=== PATIENT | male | born 1965 | race Caucasian/White ===

== ENCOUNTER 2020-03-03 14:20 | Outpatient (REF) | payer MEDICAID, SELFPAY | END 2020-03-03 14:21 | disposition home or self-care (01) | LOC: HO.LAB 14:20 | PROVIDERS: Visit Provider Internal Medicine | DX: Z20.828 Contact with and (suspected) exposure to other viral communicable diseases (principal) | CPT/HCPCS: 87635 ==

== ENCOUNTER 2020-04-08 14:44 | Outpatient (REF) | payer MEDICAID, SELFPAY | END 2020-04-08 14:45 | disposition home or self-care (01) | LOC: HO.LAB 14:44 | PROVIDERS: Visit Provider Internal Medicine | DX: Z20.828 Contact with and (suspected) exposure to other viral communicable diseases (principal) | CPT/HCPCS: C9803; U0003 ==

== ENCOUNTER 2020-11-10 22:31 | Emergency (ER) | payer MEDICAID, SELFPAY ==
[2020-11-10 22:36] VITALS: BP 114/90; BP 148/74; PULSE 95; PULSE 96; RESP 18; TEMP 36.8; O2SAT 92; O2SAT 97; BMI 30.9
--- NOTE | 2020-11-11 00:42 | ED.GENADULT ---
HPI - General Adult General Chief complaint: General Medical Stated complaint: pain Time Seen by Provider: 11/11/20 00:42 Source: patient Mode of arrival: ambulatory Limitations: no limitations History of Present Illness HPI narrative: patient drinking alcohol and staying in outside for last 2 days not drinking eating much complaining of pain all over the body Related Data Allergies Allergy/AdvReac Type Severity Reaction Status Date / Time No Known Allergies Allergy Verified 11/10/20 22:36 Review of Systems Review of Systems: Yes all other systems are reviewed and are negative [facility] Past Medical History Medical History ETOH abuse Substance abuse Social History Social History Advance Directives: No Advance Directives Information Provided: No Physical Exam Vital Signs: Vital Signs: Last Vital Signs Temp 98.2 F 11/10/20 22:36 Pulse 95 11/10/20 22:36 Resp 18 11/10/20 22:36 BP 148/74 H 11/10/20 22:36 Pulse Ox 97 11/10/20 22:36 Body Mass Index 30.9 Appearance: Alert. Oriented X3. No acute distress. EtOH + Eyes: PERRLA, No Nystagmus ENT: Pharynx normal. Oral Mucosa moist Neck: Normal inspection. Neck supple. CVS: Normal heart rate and rhythm. Pulses normal. Respiratory: No respiratory distress. Equal air entry bilateral, no wheezing/rales/rhonchi Abdomen: Soft and nontender. Bowel sounds are present, no mass palpable, no CVA tenderness Skin: Skin warm and dry. Normal skin color. Normal skin turgor. Extremities: No lower extremity edema. No calf tenderness Neuro: Oriented X 3. No motor deficit. No sensory deficit.No cerebellar signs , cranial nerves II-XII intact Medical Decision Making MDM Narrative Medical decision making narrative: patient's symptom likely from alcohol use and heat exhaustion labs stable discharge patient home patient had p.o. fluids food and IV fluids in the ER Lab Data Lab results reviewed: Yes I reviewed the patient's lab results. Result diagrams: 11/11/20 01:13 11/11/20 01:13 Labs: Lab Results 11/11/20 11/11/20 11/11/20 Range/Units 01:13 01:13 01:13 WBC 7.0 (4.8-10.8) X10*3/uL RBC 4.95 (4.60-5.80) X10*6/uL Hgb 15.9 (14.0-18.0) g/dl Hct 46.3 (42-52) % MCV 93.5 (80-98) fL MCH 32.1 (27.0-33.0) pg MCHC 34.3 (31.0-36.0) g/dl RDW 14.9 (11.0-16.0) % Plt Count 266 (160-400) X10*3/uL MPV 9.2 L (9.4-12.4) fL Immature Gran % (Auto) 0.3 (0.0-0.4) % Neut % (Auto) 47.1 (45-73) % Lymph % (Auto) 42.5 H (20-40) % [place] % (Auto) 6.8 (2-11) % Eos % (Auto) 2.7 (0-4) % Baso % (Auto) 0.6 (0-2) % Lymph # (Auto) 3.0 (1.2-4.9) X10*3/uL [place] # (Auto) 0.5 (0.1-1.2) X10*3/uL Eos # (Auto) 0.2 (0.0-0.4) X10*3/uL Baso # (Auto) 0.0 (0.0-0.2) X10*3/uL Abs Immat Gran (auto) 0.02 (0.00-0.03) X10*3/uL Absolute Neuts (auto) 3.3 (2.0-8.3) X10*3/uL Absolute Nucleated RBC 0.000 (0.0-0.012) X10*3/uL Nucleated RBC % (auto) 0.0 (0.0-0.2) /100WBC Sodium 143 (135-145) mmol/L Potassium 3.6 (3.3-5.1) mmol/L Chloride 105 (96-108) mmol/L Carbon Dioxide 26 (22-29) mmol/L Anion Gap 16 (12-20) BUN 6 L (9-16) mg/dL Creatinine 0.93 (0.5-1.4) mg/dL Estim Creat Clear Calc 86.5 Estimated GFR > 60 Random Glucose 113 (60-115) mg/dL Calcium 9.2 (8.4-10.2) mg/dL Magnesium 2.2 (1.6-2.6) mg/dL Total Bilirubin 0.8 (0.0-1.0) mg/dL AST 37 (5-37) U/L ALT 25 (0-40) U/L Alkaline Phosphatase 54 (39-117) U/L Total Creatine Kinase 518 H (38-174) U/L Total Protein 6.9 (6.5-8.0) g/dL Albumin 4.3 (3.5-5.0) g/dL Urine Color Urine Appearance Urine pH (5.0-8.0) Ur Specific [place] (1.005-1.025) Urine Protein (NEG-TRACE) MG/DL Urine Glucose (UA) (NEG) MG/DL Urine Ketones (NEG) MG/DL Urine Blood (NEG) Urine Nitrite (NEG) Ur Leukocyte Esterase (NEG) Urine RBC (0) /HPF Urine WBC (0-4) /HPF Ur Squamous Epith Cells /LPF Uric Acid Crystals /LPF Urine Bacteria /LPF Urine Mucus /LPF Ethyl Alcohol 143 mg/dL // Range/Units 01:14 WBC (4.8-10.8) X10*3/uL RBC (4.60-5.80) X10*6/uL Hgb (14.0-18.0) g/dl Hct (42-52) % MCV (80-98) fL MCH (27.0-33.0) pg MCHC (31.0-36.0) g/dl RDW (11.0-16.0) % Plt Count (160-400) X10*3/uL MPV (9.4-12.4) fL Immature Gran % (Auto) (0.0-0.4) % Neut % (Auto) (45-73) % Lymph % (Auto) (20-40) % [place] % (Auto) (2-11) % Eos % (Auto) (0-4) % Baso % (Auto) (0-2) % Lymph # (Auto) (1.2-4.9) X10*3/uL [place] # (Auto) (0.1-1.2) X10*3/uL Eos # (Auto) (0.0-0.4) X10*3/uL Baso # (Auto) (0.0-0.2) X10*3/uL Abs Immat Gran (auto) (0.00-0.03) X10*3/uL Absolute Neuts (auto) (2.0-8.3) X10*3/uL Absolute Nucleated RBC (0.0-0.012) X10*3/uL Nucleated RBC % (auto) (0.0-0.2) /100WBC Sodium (135-145) mmol/L Potassium (3.3-5.1) mmol/L Chloride (96-108) mmol/L Carbon Dioxide (22-29) mmol/L Anion Gap (12-20) BUN (9-16) mg/dL Creatinine (0.5-1.4) mg/dL Estim Creat Clear Calc Estimated GFR Random Glucose (60-115) mg/dL Calcium (8.4-10.2) mg/dL Magnesium (1.6-2.6) mg/dL Total Bilirubin (0.0-1.0) mg/dL AST (5-37) U/L ALT (0-40) U/L Alkaline Phosphatase (39-117) U/L Total Creatine Kinase (38-174) U/L Total Protein (6.5-8.0) g/dL Albumin (3.5-5.0) g/dL Urine Color YELLOW Urine Appearance CLEAR Urine pH 6.0 (5.0-8.0) Ur Specific Norman 1.025 (1.005-1.025) Urine Protein NEG (NEG-TRACE) MG/DL Urine Glucose (UA) NEG (NEG) MG/DL Urine Ketones 5 (NEG) MG/DL Urine Blood 1+ H (NEG) Urine Nitrite NEG (NEG) Ur Leukocyte Esterase NEG (NEG) Urine RBC 0-2 (0) /HPF Urine WBC 0-2 (0-4) /HPF Ur Squamous Epith Cells TRACE /LPF Uric Acid Crystals 1+ /LPF Urine Bacteria NONE /LPF Urine Mucus 3+ /LPF Ethyl Alcohol mg/dL Discharge Plan Discharge Clinical Impression: Alcohol abuse Heat exhaustion Qualifiers: Encounter type: initial encounter Qualified Code(s): T67.5XXA - Heat exhaustion, unspecified, initial encounter Patient Disposition: Home, Self-Care Instructions: Heat Exhaustion (ED), Abuse of Alcohol (ED) Additional Instructions: drink plenty of fluids , stay in shaded area stop drinking alcohol
[2020-11-11] MEDS: 0.9 % Sodium Chloride 1,000 ML 999 ML IVCONT (01:18)
[2020-11-11 01:23] LABS: MANUAL DIFF FLAG NO
[2020-11-11 01:25] LABS: Basophils Percent Auto 0.6 % (0-2); Eosinophils Absolute Auto 0.2 X10*3/uL (0.0-0.4); Eosinophils Percent Auto 2.7 % (0-4); Hematocrit 46.3 % (42-52); Hemoglobin 15.9 g/dl (14.0-18.0); Imm Gran Abs Auto 0.02 X10*3/uL (0.00-0.03); Imm Gran Pct Auto 0.3 % (0.0-0.4); Lymphocytes Percent Auto 42.5 % (20-40); Mean Corpuscular HGB Conc 34.3 g/dl (31.0-36.0); Mean Corpuscular Hemoglobin 32.1 pg (27.0-33.0); Mean Corpuscular Volume 93.5 fL (80-98); Mean Platelet Volume 9.2 fL (9.4-12.4); Monocytes Absolute Auto 0.5 X10*3/uL (0.1-1.2); Monocytes Percent Auto 6.8 % (2-11); Neutrophils Absolute Auto 3.3 X10*3/uL (2.0-8.3); Neutrophils Percent Auto 47.1 % (45-73); Platelet Count 266 X10*3/uL (160-400); Red Blood Count 4.95 X10*6/uL (4.60-5.80); Red Cell Distribution Width 14.9 % (11.0-16.0)
[2020-11-11 01:39] LABS: Glucose Urine UA NEG (NEG); Leukocyte Esterase Urine NEG (NEG); Nitrite Urine NEG (NEG); Specific Gravity - Urine 1.025 (1.005-1.025); Urine Blood 1+ (NEG); Urine Ketones 5 MG/DL (NEG); Urine Protein NEG (NEG-TRACE)
[2020-11-11 01:41] LABS: Appearance Urine CLEAR; Color Urine YELLOW
[2020-11-11 01:46] LABS: Ethanol 143 mg/dL
[2020-11-11 01:50] LABS: Alanine Aminotransferase 25 U/L (0-40); Albumin Level 4.3 g/dL (3.5-5.0); Alkaline Phosphatase 54 U/L (39-117); Anion Gap 16 (12-20); Aspartate Amino Transferase 37 U/L (5-37); Bilirubin Total 0.8 mg/dL (0.0-1.0); Blood Urea Nitrogen 6 mg/dL (9-16); Calcium 9.2 mg/dL (8.4-10.2); Carbon Dioxide 26 mmol/L (22-29); Chloride 105 mmol/L (96-108); Creatinine Clr Calc Pharmacy 86.5; Estimated Glomerular Filt Rate > 60; Glucose Random 113 mg/dL (60-115); Magnesium 2.2 mg/dL (1.6-2.6); Potassium 3.6 mmol/L (3.3-5.1); Sodium 143 mmol/L (135-145); Total Protein 6.9 g/dL (6.5-8.0)
[2020-11-11 02:01] LABS: Mucus Urine 3+ /LPF; RBC Urine 0-2 /HPF (0); Squamous Epithelial Cell Urine TRACE /LPF; Uric Acid Crystals Urine 1+ /LPF; WBC Urine 0-2 /HPF (0-4)
[2020-11-11 02:24] VITALS: BP 130/72; PULSE 81; RESP 16; TEMP 36.6; O2SAT 99
== END 2020-11-11 02:26 | disposition home or self-care (01) ==
PROVIDERS: Emergency Provider Internal Medicine; PCP Internal Medicine
DX: T67.5XXA Heat exhaustion, unspecified, initial encounter (principal); F10.10 Alcohol abuse, uncomplicated; Y90.9 Presence of alcohol in blood, level not specified; X58.XXXA Exposure to other specified factors, initial encounter; Y93.9 Activity, unspecified; Y92.9 Unspecified place or not applicable; Y99.9 Unspecified external cause status
CPT/HCPCS: 36415; 80053; 81001; 82077; 82550; 83735; 85025; 96360; 99283; 99284

== ENCOUNTER 2022-03-10 16:03 | Emergency (ER) | payer MEDICAID, SELFPAY ==
--- NOTE | ~2022-03-10 | XR_ITS ---
EXAMINATION: XR CHEST CLINICAL INFORMATION: Chest pain COMPARISON: None TECHNIQUE: 2 views of the chest were obtained. FINDINGS: No significant abnormality is noted involving the heart, lungs, mediastinum, or soft tissues. Mild degenerative changes. XR/XR chest 2V IMPRESSION: Unremarkable examination.
[2022-03-10 16:16] VITALS: BP 140/82; PULSE 65; O2SAT 97
--- NOTE | 2022-03-10 16:19 | ECG_ITS ---
Test Reason : CHEST PAIN Blood Pressure : / mmHG Vent. Rate : 062 BPM Atrial Rate : 062 BPM P-R Int : 184 ms QRS Dur : 108 ms QT Int : 420 ms P-R-T Axes : 030 042 058 degrees QTc Int : 426 ms Normal sinus rhythm Intra-ventricular conduction delay Nonspecific ST abnormality Inferior leads Abnormal ECG No previous ECGs available Referred By: Generic ED Physician Electronically Signed By:JERONIMO STUART MD
[2022-03-10 16:28] VITALS: BP 117/63; PULSE 65; RESP 17; TEMP 36.6; O2SAT 98; BMI 22.3
[2022-03-10 16:43] LABS: MANUAL DIFF FLAG NO
[2022-03-10 16:45] LABS: Basophils Percent Auto 0.6 % (0-2); Eosinophils Absolute Auto 0.1 X10*3/uL (0.0-0.4); Eosinophils Percent Auto 2.1 % (0-4); Hematocrit 37.7 % (42.0-52.0); Hemoglobin 12.9 g/dl (14.0-18.0); Imm Gran Abs Auto 0.01 X10*3/uL (0.00-0.03); Imm Gran Pct Auto 0.1 % (0.0-0.4); Lymphocytes Absolute Auto 3.9 X10*3/uL (1.2-4.9); Lymphocytes Percent Auto 58.3 % (20-40); Mean Corpuscular HGB Conc 34.2 g/dl (31.0-36.0); Mean Corpuscular Hemoglobin 30.9 pg (27.0-33.0); Mean Corpuscular Volume 90.4 fL (80.0-98.0); Mean Platelet Volume 8.9 fL (9.4-12.4); Monocytes Absolute Auto 0.7 X10*3/uL (0.1-1.2); Monocytes Percent Auto 10.1 % (2-11); Neutrophils Percent Auto 28.8 % (45-73); Platelet Count 239 X10*3/uL (160-400); Red Blood Count 4.17 X10*6/uL (4.60-5.80); Red Cell Distribution Width 14.3 % (11.0-16.0); White Blood Count 6.8 X10*3/uL (4.8-10.8)
[2022-03-10 17:03] LABS: Anion Gap 14 (12-20); Blood Urea Nitrogen 17 mg/dL (9-16); Calcium 9.7 mg/dL (8.4-10.2); Carbon Dioxide 27 mmol/L (22-29); Chloride 103 mmol/L (96-108); Creatinine Clr Calc Pharmacy 70.9; Estimated Glomerular Filt Rate > 60; Glucose Random 95 mg/dL (60-115); Sodium 139 mmol/L (135-145)
[2022-03-10 17:11] LABS: Troponin-I High Sensitivity 3.5 ng/L (<3.5-35.0)
--- OUTSIDE RECORDS SUMMARY | 2022-03-10 21:49 | XMS_ITS ---
:1965 Author Support Name Relationship Address Phone Quan Dickey Unavailable [address] [place] [address] Alexus Walker Unavailable Unavailable [phone] PROBLEMS Unknown Problems ALLERGIES No Information ENCOUNTERS Encounter Location Date Diagnosis [facility] [address] [place] [address] [place], [place] [id number] IMMUNIZATIONS No Known Immunizations SOCIAL HISTORY Never Assessed REASON FOR REFERRAL FUNCTIONAL STATUS PLAN OF CARE VITAL SIGNS MEDICATIONS Unknown Medications PROCEDURES No Known procedures RESULTS No Results REASON FOR VISIT
--- OUTSIDE RECORDS SUMMARY | 2022-03-10 21:49 | XMS_ITS | Continuity of Care Document ---
:1965 Author Organization [facility] Address [address] [place] [address]- Care Team Providers Name Role Phone Nupur HOOK, Kana Jacobs Primary Care Physician [phone] Encounter [facility] [place] Date(s): 08/09/21 - 08/12/[address] [id number] Discharge Disposition: A-D/C Home Attending Physician: Lisa Santillan MD Admitting Physician: Kwaku Fuentes MD Referring Physician: Not on Staff, Referring MD Allergies, Adverse Reactions, Alerts No Known Allergies Medications acetaminophen 325 mg oral tablet 650 mg, Tablet, By Mouth, 08/12/21 8:00:00 EDT Start Date: 08/12/21 Stop Date: 08/12/21 Status: Completedcrutches crutches, See Instructions, # 1 units, Refills 0, Tot. Refills 0, Maintenance, for ambulation, 01/31/14 14:51:29, Compound Start Date: 01/31/14 Status: Orderedibuprofen 600 mg oral tablet 1 tablet = 600 mg, By Mouth, Every 6 hours, # 30 tablet, 0 Refills, Maintenance, 10/17/14 9:30:19, Tablet Start Date: 10/17/14 Status: Orderedknee immobilizer knee immobilizer, See Instructions, # 1 units, Refills 0, Tot. Refills 0, Maintenance, for ambulatipn, 01/31/14 14:51:35, Compound Start Date: 01/31/14 Status: OrderedSuboxone 8 mg-2 mg sublingual film 1 film, Sublingual, Daily, dissolve under the tongue, # 7 film, 0 Refills, Maintenance, 08/13/21 8:00:00 EDT, Film, [facility], Partial fill upon patient request if the prescription is for a schedule II opioid drug. [id number], 1 film Sub... Start Date: 08/13/21 Status: Ordered Results Radiology Reports Exam Date Time Procedure Performing Provider Status 08/09/21 8:30 PM Chest 2 Views Frontal and Lat Tete Najera; Au th (Verified) Notes:(Chest 2 Views Frontal and Lat) Reason For Exam: CoughRESULT: Chest 2 Views Frontal and Lat Chest 2 Views Frontal and Lat Hx of Present Illness: Pt has very vague complaints. He sts I feel unwell c o body aches all over.Back pain which is not new. nausea without vomitting and constipation, last BM yesterday.; Reason: Cough; Clinical Question(s): Pneumonia; Special Instructions: This is a protocol film and radiologist should call any findings to the Charge Nurse or appropriate provider COMPARISON: None. FINDINGS: LINES AND TUBES: None. LUNGS AND PLEURA: Clear lungs. Normal pulmonary vascularity. No pleural effusion. No pneumothorax. HEART, MEDIASTINUM AND JEREMY: Heart is normal in size. Normal upper mediastinal and hilar contour. BONES AND SOFT TISSUES: No acute abnormality. IMPRESSION: No acute abnormality. WSN: [id number] Ordering Physician: Rere Rosales Dictated By: Tj Hodge MD Dictated Date/Time: 08/09/21 8:39 pm Reviewed By: Tj Hodge MD Signed By: Tj Hodge MD Signed Date/Time: 08/09/21 8:39 pm Transcribed By: RENAN Transcribed Date/Time: 08/09/21 8:39 pm Vital Signs Most recent to oldest 1 2 3 [Reference Range]: Height 163 cm 163 cm 163 cm (08/12/21 8:47 AM) (08/12/21 4:18 AM) (08/11/21 11: 25 PM) Oxygen Saturation [94-100 %] 100 % 100 % 100 % (08/12/21 8:47 AM) (08/12/21 4:18 AM) (08/11/21 11: 25 PM) Pulse Rate [55-90 bpm] 82 bpm 57 bpm 67 bpm (08/12/21 8:47 AM) (08/12/21 4:18 AM) (08/11/21 11: 25 PM) Blood Pressure [90-138/55-84 128/75 mm Hg 148/62 mm Hg 126 /79 mm Hg mm Hg] (08/12/21 8:47 AM) *H* (08/11/21 11:25 PM) (08/12/21 4:18 AM) Respiratory Rate [16-30 18 br/min 20 br/min 18 br/mi n br/min] (08/12/21 9:53 AM) (08/12/21 8:47 AM) (08/12/21 8:3 8 AM) Temperature [96.8-100.4 DegF] 97.8 DegF 98.6 DegF 98 .0 DegF (08/12/21 8:47 AM) (08/12/21 4:18 AM) (08/11/21 11: 25 PM) Mode of Delivery (Oxygen) Room air Room air Room a ir (08/12/21 8:47 AM) (08/12/21 4:18 AM) (08/11/21 11: 25 PM) Blood pressure sites Arm, left Arm, left Arm, left (08/12/21 8:47 AM) (08/12/21 4:18 AM) (08/11/21 11: 25 PM) Temperature Route Oral Oral Oral (08/12/21 8:47 AM) (08/12/21 4:18 AM) (08/11/21 11: 25 PM) Weight Obtained Via UTO (08/09/21 6:17 PM) Dry Weight Obtained Via UTO (08/09/21 6:17 PM) Social History Social History Type Response Smoking Status Current every day smoker entered on: 10/17/14 Sex
--- OUTSIDE RECORDS SUMMARY | 2022-03-10 21:49 | XMS_ITS | Continuity of Care Document ---
:1965 Author Organization [facility] Address [address] [place] [address]- Care Team Providers Name Role Phone Nupur HOOK, Kana Jacobs Primary Care Physician Encounter [facility] [place] Date(s): 11/21/20 - 11/22/[address] [address]- Discharge Disposition: A-D/C Home Attending Physician: Kayla HOOK, Bhupinder Jones Admitting Physician: Kayla HOOK, Bhupinder Jones Referring Physician: Not on Staff, Referring MD Allergies, Adverse Reactions, Alerts Substance Reaction Severity Status NKA Active Medications crutches crutches, See Instructions, # 1 units, Refills [...] 01/31/14 14:51:35, Compound Start Date: 01/31/14 Status: OrderedPercocet-5/325 325 mg-5 mg oral tablet 2 tablet, By Mouth, Every 6 hours, PRN Pain, # 12 tablet, 0 Refills, Maintenance, 10/17/14 9:31:27 Start Date: 10/17/14 Status: Ordered Vital Signs Most recent to oldest [Reference 1 2 3 Range]: Oxygen Saturation [94-100 %] 97 % 97 % 98 % (11/22/20 6:01 AM) (11/21/20 10:24 PM) (11/21/20 7:44 PM) Pulse Rate [55-90 bpm] 57 bpm 64 bpm 79 bpm (11/22/20 6:01 AM) (11/21/20 10:24 PM) (11/21/20 7:44 PM) Blood Pressure [90-138/55-84 mm 114/74 mm Hg 100/57 mm Hg 125/53 mm Hg Hg] (11/22/20 6:01 AM) (11/21/20 10:24 PM) (11/21/20 7:44 PM) Respiratory Rate [16-30 br/min] 16 br/min 16 br/min 16 br/min (11/22/20 6:01 AM) (11/21/20 10:24 PM) (11/21/20 7:44 PM) Temperature [96.8-100.4 DegF] 97.6 DegF 98.0 DegF (11/22/20 6:01 AM) (11/21/20 7:44 PM) Mode of Delivery (Oxygen) Room air Room air Room a ir (11/22/20 6:01 AM) (11/21/20 10:24 PM) (11/21/20 7:44 PM) Blood pressure sites Arm, right (11/22/20 6:01 AM) Temperature Route Oral Oral (11/22/20 6:01 AM) (11/21/20 7:44 PM) Social History Social History Type Response Smoking Status Current every day smoker entered on: 10/17/14 Sex
--- NOTE | 2022-03-10 22:01 | ED.CHESTPAIN ---
HPI - Chest Pain General Chief Complaint: Chest Pain Stated Complaint: chest pain Time Seen by Provider: 03/10/22 16:12 History of Present Illness HPI narrative: Patient is a 56-year-old male presents today with having chest pain. The chest pain is over the left side. It is sharp. It is localized. It is not associated with shortness of breath. There is no diaphoresis. Patient claims is a constant component and there is a 1-2 second component. It is worse with specific movement of the body. Patient denies any coughing congestion upper respiratory symptoms. Denies any diaphoresis. No recent stress test. Positive history of hypertension. No history of diabetes, high cholesterol, [place]. Positive history of smoking quit 10 years ago. No leg swelling no history of blood clots. Patient from home. No stress test done Related Data Allergies Allergy/AdvReac Type Severity Reaction Status Date / Time No Known Allergies Allergy Verified 11/10/20 22:36 Review of Systems Review of Systems: positive chest pain. No shortness of breath no diaphoresis Yes all other systems are reviewed and are negative PENDING SALE TO [facility] Past Medical History Attestation statement: The following information was validated with the patient. Medical History ETOH abuse Substance abuse Social History Social History Advance Directives: No Advance Directives Information Provided: No Physical Exam Vital Signs: Vital Signs: Last Vital Signs Temp 98.5 F 03/10/22 22:57 Pulse 78 03/10/22 22:57 Resp 17 03/10/22 22:57 BP 130/60 03/10/22 22:57 Pulse Ox 98 03/10/22 22:57 O2 Del Method 03/10/22 22:57 BMI result Body Mass Index 22.3 Appearance: Alert. Oriented X3. No acute distress. Eyes: Pupils equal, round and reactive to light. ENT: Pharynx normal. Neck: Normal inspection. Neck supple. No lymph nodes noted. No crepitus CVS: Normal heart rate and rhythm. Pulses normal. Normal S1 and S2 Respiratory: No respiratory distress. Breath sounds normal. No Wheezing. No rales Abdomen: Soft and nontender. No rigidity. No distention. good BS x4 Skin: Skin warm and dry. Normal skin color. Normal skin turgor. Extremities: No lower extremity edema. Neurovascular intact to all extremities. No Lacerations. No Rash Neuro: Oriented X 3. No motor deficit. No sensory deficit. Moving all extermities. No slurred speech MDM - Chest Pain MDM Narrative Medical decision making narrative: Two sets of cardiac enzyme were negative. Patient's chest pain atypical for ACS. Patient's D-dimer was negative. In the setting of low risk unlikely to have pulmonary emboli. Chest x-ray showed no pneumonia no pneumothorax. Will discharge patient home. Follow up on an outpatient basis. Discussed with patient the need for follow-up given patient's risk factor in age. Patient's EKG showed a sinus pattern heart rate is 60 HI QRS QT within normal limits is no acute ST segment elevation. EKG is unchanged from previous. Medical Records Data Attestation: I reviewed the patient's medical records. Lab Data Attestation: I reviewed the patient's lab results. Result diagrams: 03/10/22 16:29 03/10/22 16:29 Labs: Lab Results 03/10/22 03/10/22 03/10/22 Range/Units 16:29 16:29 16:29 WBC 6.8 (4.8-10.8) X10*3/uL RBC 4.17 L (4.60-5.80) X10*6/uL Hgb 12.9 L (14.0-18.0) g/dl Hct 37.7 L (42.0-52.0) % MCV 90.4 (80.0-98.0) fL MCH 30.9 (27.0-33.0) pg MCHC 34.2 (31.0-36.0) g/dl RDW 14.3 (11.0-16.0) % Plt Count 239 (160-400) X10*3/uL MPV 8.9 L (9.4-12.4) fL Immature Gran % (Auto) 0.1 (0.0-0.4) % Neut % (Auto) 28.8 L (45-73) % Lymph % (Auto) 58.3 H (20-40) % [place] % (Auto) 10.1 (2-11) % Eos % (Auto) 2.1 (0-4) % Baso % (Auto) 0.6 (0-2) % Lymph # (Auto) 3.9 (1.2-4.9) X10*3/uL [place] # (Auto) 0.7 (0.1-1.2) X10*3/uL Eos # (Auto) 0.1 (0.0-0.4) X10*3/uL Baso # (Auto) 0.0 (0.0-0.2) X10*3/uL Abs Immat Gran (auto) 0.01 (0.00-0.03) X10*3/uL Absolute Neuts (auto) 2.0 (2.0-8.3) x10*3/uL Absolute Nucleated RBC 0.000 (0.0-0.012) X10*3/uL Nucleated RBC % (auto) 0.0 (0.0-0.2) /100WBC D-Dimer High Sensitivty NG/ML Sodium 139 (135-145) mmol/L Potassium 5.0 D (3.3-5.1) mmol/L Chloride 103 (96-108) mmol/L Carbon Dioxide 27 (22-29) mmol/L Anion Gap 14 (12-20) BUN 17 H (9-16) mg/dL Creatinine 0.97 (0.5-1.4) mg/dL Estim Creat Clear Calc 70.9 Estimated GFR > 60 Random Glucose 95 (60-115) mg/dL Calcium 9.7 (8.4-10.2) mg/dL Troponin I High Sens 3.5 (<3.5-35.0) ng/L 03/10/22 03/10/22 Range/Units 22:11 22:11 WBC (4.8-10.8) X10*3/uL RBC (4.60-5.80) X10*6/uL Hgb (14.0-18.0) g/dl Hct (42.0-52.0) % MCV (80.0-98.0) fL MCH (27.0-33.0) pg MCHC (31.0-36.0) g/dl RDW (11.0-16.0) % Plt Count (160-400) X10*3/uL MPV (9.4-12.4) fL Immature Gran % (Auto) (0.0-0.4) % Neut % (Auto) (45-73) % Lymph % (Auto) (20-40) % [place] % (Auto) (2-11) % Eos % (Auto) (0-4) % Baso % (Auto) (0-2) % Lymph # (Auto) (1.2-4.9) X10*3/uL [place] # (Auto) (0.1-1.2) X10*3/uL Eos # (Auto) (0.0-0.4) X10*3/uL Baso # (Auto) (0.0-0.2) X10*3/uL Abs Immat Gran (auto) (0.00-0.03) X10*3/uL Absolute Neuts (auto) (2.0-8.3) x10*3/uL Absolute Nucleated RBC (0.0-0.012) X10*3/uL Nucleated RBC % (auto) (0.0-0.2) /100WBC D-Dimer High Sensitivty < 150 NG/ML Sodium (135-145) mmol/L Potassium (3.3-5.1) mmol/L Chloride (96-108) mmol/L Carbon Dioxide (22-29) mmol/L Anion Gap (12-20) BUN (9-16) mg/dL Creatinine (0.5-1.4) mg/dL Estim Creat Clear Calc Estimated GFR Random Glucose (60-115) mg/dL Calcium (8.4-10.2) mg/dL Troponin I High Sens 3.5 (<3.5-35.0) ng/L Discharge Plan Discharge Clinical Impression: Chest pain Patient Disposition: Home, Self-Care Instructions: Chest Pain (DC) Referrals: [facility] [Primary Care Provider] - 2 days
[2022-03-10 22:31] LABS: D Dimer High Sensitivity < 150 NG/ML
[2022-03-10 22:39] LABS: Troponin-I High Sensitivity 3.5 ng/L (<3.5-35.0)
[2022-03-10 22:57] VITALS: BP 130/60; PULSE 78; RESP 17; TEMP 36.9; O2SAT 98
== END 2022-03-10 23:52 | disposition home or self-care (01) ==
PROVIDERS: Emergency Provider Emergency Medicine Emergency Medical Services
DX: R07.89 Other chest pain (principal); Z79.899 Other long term (current) drug therapy
CPT/HCPCS: 36415; 71046; 80048; 84484; 85025; 85379; 93005; 99283; 99284